=== PATIENT | male | born 1945 | race Caucasian/White ===

== ENCOUNTER 2023-02-01 14:48 | Emergency (ER) | payer OTHER ==
[~2023-02-01] VITALS: Ht 177.8 cm; Wt 86.2 kg
--- NOTE | 2023-02-01 16:10 | NUR ---
RECEIVED PT 77 YRS MALE CAME FROM HOME FROM WATING ROOM S/P FALL AND TRIP C/O PAIN ON LT SHOULDER NO DIFORMITY NO DISLOCATION
--- NOTE | 2023-02-01 16:30 | NUR ---
SEEN BY DR. PERSAUD
--- NOTE | 2023-02-01 16:45 | NUR ---
X RAY DONE ON LT SHOULDER
[2023-02-01] MEDS ORDERED: KETOROLAC TROMETHAMINE INJ 60 MG/2 ML VIAL IM ONE (17:30)
[2023-02-01] MEDS ORDERED: KETOROLAC TROMETHAMINE INJ 30 MG/ML VIAL ONE (17:41)
[2023-02-01] MEDS ORDERED: IBUP-1953 PO (18:22)
--- NOTE | 2023-02-01 18:31 | NUR ---
Patient discharged to home in stable condition. Written and verbal after care instructions given. Patient verbalizes understanding of instruction.
[2023-02-01 18:43] VITALS: BP 157/88
== END 2023-02-01 19:14 | disposition home or self-care (01) ==
LOC: ER 14:48
DX: S49.92XA Unspecified injury of left shoulder and upper arm, initial encounter (principal); I10 Essential (primary) hypertension; W19.XXXA Unspecified fall, initial encounter; Y93.89 Activity, other specified; Y92.481 Parking lot as the place of occurrence of the external cause; Y99.8 Other external cause status
CPT/HCPCS: 99284; 96372; 73080; 73060; 73030; J1885